=== PATIENT | female | born 1935 | race Two or more races ===

== ENCOUNTER 2017-03-10 21:11 | Inpatient (IN) | payer MEDICARE, OTHER ==
[~2017-03-10] VITALS: Ht 121.9 cm; Wt 39.0 kg
--- NOTE | 2017-03-10 22:00 | NUR ---
GPS/RN NOTE: ADMITTED DIRECTLY FROM [facility], BROUGHT IN BY 2 MALE PARAMEDICS VIA AMBULANCE, CAME TO THE UNIT VIA GURNEY. PATIENT IS ADMITTED ON 5150 FOR GD. PER HOLD PATIENT IS NOT CARING FOR HERSELF, CONFUSED, FORGETFUL, SEEING THINGS THAT ARE NOT THERE. UPON FACE TO FACE PATIENT APPEARS THIN, SAD, DEPRESSED, DISHEVELED, ANXIOUS AND PRE-OCCUPIED, NOT EATING AND LOST 50 LBS IN ABOUT 6 MONTHS, PER HER NIECE, DORIS. SHE HAS BEEN FALLING, FAMILY CAN'T LEAVE HER ALONE AND FEARS FOR HER SAFETY. PLACED PATIENT COMFORTABLY IN BED. RESPIRATION EVEN, BREATHING PATTERN NON-LABORED, NO APPARENT DISTRESS NOTED. PATIENT IS AWAKE, ALERT, ORIENTED TO HER NAME ONLY, CONFUSED, SAD, DEPRESSED, UNKEMPT, DISHEVELED, ANXIOUS, UNABLE TO COMPREHEND, NOT FOLLOWING SIMPLE INSTRUCTIONS. SKIN WARM AND INTACT, NO SWELLING NOTED. BELONGINGS WERE INVENTORIED AND CHECKED FOR CONTRABAND. NO CONTRABAND AND VALUABLES FOUND. PATIENT IS UNDER THE PSYCHIATRIC CARE OF DR. CORDERO AND UNDER THE MEDICAL CARE OF DR. DEVYN ALFORD. MED-RECON DONE. FAMILY WILL BE NOTIFIED OF ADMISSION TO THE UNIT. MRSA SCREEN DONE. BED LOCKED AND PLACED ON LOWEST POSITION FOR SAFETY. WILL CONTINUE TO MONITOR Q 15 MINS. TO MAINTAIN SAFETY. Addendum: 03/11/17 at 0426 by JACOB ISBELL RN GPS/RN NOTE: PATIENT IS UNDER THE PSYCHIATRIC CARE OF DR. RODRIGUEZ. USER ERROR
[2017-03-10] MEDS ORDERED: MAGNESIUM HYDROXIDE 30 ML UDC PO PRN (22:30)
[2017-03-10] MEDS ORDERED: ACETAMINOPHEN 325 MG TABLET PO PRN (22:30)
[2017-03-10] MEDS ORDERED: MAG HYDROX/AL HYDROX/SIMETH 30 ML UDC PO PRN (22:30)
[2017-03-10] MEDS ORDERED: clonazePAM 0.5 MG TABLET PO PRN (23:30)
[2017-03-11] MEDS ORDERED: BENZ1TAB7 PO (00:13)
[2017-03-11] MEDS ORDERED: BENA20TA2 PO (00:13)
[2017-03-11] MEDS ORDERED: [UNRECOGNIZED DRUG - CODE] PO (00:13)
[2017-03-11] MEDS ORDERED: PANT40TA4 PO (00:13)
[2017-03-11] MEDS ORDERED: AMLO5TAB2 PO (00:13)
[2017-03-11] MEDS ORDERED: METF10002 PO (00:13)
[2017-03-11] MEDS ORDERED: RIFA550T PO (00:13)
[2017-03-11] MEDS ORDERED: ARIP10TA15 PO (00:13)
[2017-03-11] MEDS ORDERED: CALC-838 PO (00:13)
[2017-03-11] MEDS ORDERED: ASPI81TA2 PO (00:13)
[2017-03-11] MEDS ORDERED: ATEN25TA PO (00:13)
[2017-03-11] MEDS ORDERED: CICL15CR12 TP (00:13)
[2017-03-11] MEDS ORDERED: IBUP-1955 PO (00:13)
[2017-03-11] MEDS ORDERED: ONDA-25 PO (00:13)
[2017-03-11] MEDS ORDERED: TRAZ-144 PO (00:25)
[2017-03-11] MEDS ORDERED: OLAN5TAB3 PO (00:25)
[2017-03-11] MEDS ORDERED: PARO10TA26 PO (00:25)
[2017-03-11] MEDS ORDERED: LORA1TAB82 PO (00:25)
[2017-03-11 01:32] VITALS: BP 135/83
[2017-03-11] MEDS ORDERED: ONDANSETRON 4 MG TAB.RAPDIS SL PRN (02:30)
[2017-03-11 08:00] VITALS: BP 137/83
[2017-03-11 08:15] LABS: ALANINE AMINOTRANSFERASE 192 U/L (12-78); ALBUMIN 3.4 g/dL (3.4-5.0); ALKALINE PHOSPHATASE 197 U/L (46-116); ASPARTATE AMINOTRANSFERASE 98 U/L (15-37); BILIRUBIN,TOTAL 0.4 mg/dL (0.2-1.0); CALCIUM, SERUM 9.3 mg/dL (8.5-10.1); CARBON DIOXIDE 27 mmol/L (21-32); CHLORIDE 103 mmol/L (98-107); CREATININE 0.9 mg/dL (0.6-1.3); GLUCOSE 200 mg/dL (74-106); POTASSIUM 4.7 mmol/L (3.5-5.1); SODIUM SERUM 139 mmol/L (136-145); TOTAL PROTEIN, SERUM 6.9 g/dL (6.4-8.2); UREA NITROGEN, BLOOD 22 mg/dL (7-18)
[2017-03-11 08:38] LABS: CHOLESTEROL 99 mg/dL (<200); HDL CHOLESTEROL 32 mg/dL (40-60); LDL 52 mg/dL (0-99); TRIGLYCERIDES 71 mg/dL (30-150)
[2017-03-11] MEDS: IBUPROFEN 600 MG TABLET PO SCH ×2 (09:00→12:00)
[2017-03-11] MEDS: BENAZEPRIL HCL 20 MG TABLET PO SCH (09:24)
[2017-03-11] MEDS: METFORMIN 500 MG TABLET PO SCH ×2 (09:24→16:35)
[2017-03-11] MEDS: SULFAMETH/TRIMETH 800/160 MG 1 UDTAB TABLET PO SCH ×2 (09:25→21:04)
[2017-03-11] MEDS: ASPIRIN 81 MG TAB.CHEW PO SCH (09:25)
[2017-03-11] MEDS: ATENOLOL 25 MG TABLET PO SCH (09:25)
[2017-03-11] MEDS: AMLODIPINE BESYLATE 5 MG TABLET PO SCH (09:25)
[2017-03-11] MEDS: RIFAXIMIN 550 MG TABLET PO SCH ×2 (09:28→16:36)
[2017-03-11] MEDS ORDERED: IBUPROFEN 600 MG TABLET PO PRN (14:30)
[2017-03-11 16:00] VITALS: BP 110/60
[2017-03-11] MEDS: BOOST PLUS FOOD-VANILLA 237 ML BOX PO SCH (16:40)
[2017-03-11 20:53] VITALS: BP 99/57
[2017-03-11] MEDS: OLANZAPINE 2.5 MG TABLET PO SCH (21:04)
[2017-03-11] MEDS: PAROXETINE HCL 20 MG TABLET PO SCH (21:08)
[2017-03-12] MEDS: BLOOD SUGAR DIAGNOSTIC 1 EACH STRIP IN SCH ×5 (00:50→22:04)
[2017-03-12] MEDS ORDERED: DEXTROSE 50%-WATER 50 ML DISP.SYRIN IV PRN (01:00)
--- NOTE | 2017-03-12 07:59 | NUR ---
[id number]: BLOOD SUGAR IS 123 MG/DL AND NO INSULIN REQUIRED AT THIS TIME.
[2017-03-12 08:00] VITALS: BP 117/74
[2017-03-12] MEDS: BENAZEPRIL HCL 20 MG TABLET PO SCH (08:46)
[2017-03-12] MEDS: ASPIRIN 81 MG TAB.CHEW PO SCH (08:46)
[2017-03-12] MEDS: METFORMIN 500 MG TABLET PO SCH ×2 (08:46→16:11)
[2017-03-12] MEDS: AMLODIPINE BESYLATE 5 MG TABLET PO SCH (08:46)
[2017-03-12] MEDS: SULFAMETH/TRIMETH 800/160 MG 1 UDTAB TABLET PO SCH ×2 (08:46→20:05)
[2017-03-12] MEDS: ATENOLOL 25 MG TABLET PO SCH (08:49)
[2017-03-12] MEDS: RIFAXIMIN 550 MG TABLET PO SCH ×2 (08:51→16:11)
[2017-03-12] MEDS: BOOST PLUS FOOD-VANILLA 237 ML BOX PO SCH ×3 (08:56→16:16)
--- NOTE | 2017-03-12 12:00 | NUR ---
[id number]: BLOOD SUGAR IS 101 MG/DL AND NO INSULIN REQUIRED AT THIS TIME.
--- NOTE | 2017-03-12 15:36 | NUR ---
Initial Discharge Note: Patient resides at home with her sister [address] [place] [address] ([phone]). well service floor worker spoke to both patient's sister Kim Sanderson ([phone]) and patient's niece Marilee Julio ([phone]) who both confirmed that patient lives at home with her sister Kim Sanderson. well service floor worker will help form a safe and proper discharge.
[2017-03-12 16:00] VITALS: BP 100/67
--- NOTE | 2017-03-12 17:00 | NUR ---
[id number]: BLOOD SUGAR IS 127 MG/DL AND NO INSULIN REQUIRED AT THIS TIME.
[2017-03-12] MEDS: OLANZAPINE 2.5 MG TABLET PO SCH (20:05)
[2017-03-12 20:13] VITALS: BP 104/57
[2017-03-12] MEDS: PAROXETINE HCL 20 MG TABLET PO SCH (21:19)
[2017-03-12] MEDS: INSULIN REGULAR, HUMAN 100 UNIT/ML 3 ML VIAL SQ PRN (22:08)
[2017-03-13] MEDS: BLOOD SUGAR DIAGNOSTIC 1 EACH STRIP IN SCH ×4 (07:47→23:06)
[2017-03-13 08:17] VITALS: BP 119/70
[2017-03-13] MEDS: METFORMIN 500 MG TABLET PO SCH ×2 (08:35→16:45)
[2017-03-13] MEDS: ASPIRIN 81 MG TAB.CHEW PO SCH (08:35)
[2017-03-13] MEDS: SULFAMETH/TRIMETH 800/160 MG 1 UDTAB TABLET PO SCH ×2 (08:35→20:56)
[2017-03-13] MEDS: AMLODIPINE BESYLATE 5 MG TABLET PO SCH (08:35)
[2017-03-13] MEDS: ATENOLOL 25 MG TABLET PO SCH (08:35)
[2017-03-13] MEDS: BENAZEPRIL HCL 20 MG TABLET PO SCH (08:35)
[2017-03-13] MEDS: RIFAXIMIN 550 MG TABLET PO SCH ×2 (08:37→16:46)
[2017-03-13] MEDS: BOOST PLUS FOOD-VANILLA 237 ML BOX PO SCH ×3 (08:49→16:45)
--- NOTE | 2017-03-13 12:35 | NUR ---
GPS RN NOTE; DR CHIANG NOTIFIED PT COMPLAINING THAT SHE CANT MOVE HER RIGHT HAND THAT HAPPENED IN THE MORNING NO NEW ORDERS AT THIS TIME MD WILL LOOK AT IT LATER WILL CONTINUE MONITORING FOR SAFETY AND BEHAVIOR Q 15 MIN
[2017-03-13 16:12] VITALS: BP 96/61
--- NOTE | 2017-03-13 20:30 | NUR ---
GPS RN NOTE: REASSESSED THE RIGHT HAND AND THERE IS A NOTICEABLE WEAKNESS AND DROPPING OF THE RIGHT HAND. PATIENT DENIES ANY PAIN AND DISCOMFORT AND PATIENT CAN STILL ABLE TO SQUEEZE HAND. NOTIFIED DR. BORREGO WITH ORDER OF NEURO CONSULT AND RE EVALUATE IN THE MORNING
[2017-03-13 20:36] VITALS: BP 110/54
[2017-03-13] MEDS: OLANZAPINE 2.5 MG TABLET PO SCH (20:56)
[2017-03-13] MEDS: PAROXETINE HCL 20 MG TABLET PO SCH (21:08)
--- NOTE | 2017-03-14 06:58 | NUR ---
CALLED DR ELIZABETH SAVAGE AT PHONE # [phone] FOR NEURO CONSULT ,OFFICE HOUR IS FROM 9AM TO 4 PM.WILL ENDORSE TO AM SHIFT RN TO FOLLOW UP.
[2017-03-14 08:00] VITALS: BP 152/76
[2017-03-14] MEDS: BLOOD SUGAR DIAGNOSTIC 1 EACH STRIP IN SCH ×4 (08:05→21:36)
[2017-03-14] MEDS: RIFAXIMIN 550 MG TABLET PO SCH ×2 (09:00→17:00)
[2017-03-14] MEDS: AMLODIPINE BESYLATE 5 MG TABLET PO SCH (09:00)
[2017-03-14] MEDS: BENAZEPRIL HCL 20 MG TABLET PO SCH (09:00)
[2017-03-14] MEDS: SULFAMETH/TRIMETH 800/160 MG 1 UDTAB TABLET PO SCH ×2 (09:00→20:04)
[2017-03-14] MEDS: ASPIRIN 81 MG TAB.CHEW PO SCH (09:00)
[2017-03-14] MEDS: BOOST PLUS FOOD-VANILLA 237 ML BOX PO SCH ×3 (09:00→17:34)
[2017-03-14] MEDS: METFORMIN 500 MG TABLET PO SCH ×2 (09:00→17:00)
[2017-03-14] MEDS: ATENOLOL 25 MG TABLET PO SCH (09:00)
[2017-03-14 12:00] VITALS: BP 114/60
--- NOTE | 2017-03-14 12:27 | NUR ---
GPS RN: PATIENT IS ASLEEP AT THIS TIME. MORNING MEDICATIONS NOT ADMINISTERED DUE TO PATIENT BEING ASLEEP. NO S/S OF ACUTE DISTRESS, RESPIRATION EVEN AND UNLABORED, SKIN WARM TO TOUCH, AROUSED BY STIMULI. VS STABLE: 114/60 HR 74, RR 18, T 97.4; O2 SAT 95% ROOM AIR. DR. JOHNSON AND DR. CHIANG SEEN THE PATIENT IN THE MORNING. WILL CONTINUE TO MONITOR THE PATIENT.
--- NOTE | 2017-03-14 15:30 | NUR ---
GPS RN: PATIENT APPEARS TO BE SEDATED, AROUSED BY STIMULR, VSS, NO S/S OF ACUTE DISTRESS, SKIN WARM, RESPIRATION EVEN AND UNLABORED. DR. RODRIGUEZ IN THE UNIT, MADE AWARE. CONTINUE TO MONITOR THE PATIENT.
[2017-03-14 16:00] VITALS: BP 152/89
--- NOTE | 2017-03-14 18:08 | NUR ---
GPS RN: UNABLE TO ADMINISTER 1700 MEDS DUE TO PATIENT BEING SEDATED. PT ONLY TOOK HER BOOST.VSS, NO SS OF ACUTE DISTRESS, SKIN IS WARM TO TOUCH, RESPIRATION EVEN AND UNLABORED. FAMILY AT BEDSIDE. CONTINUE TO MONITOR THE PATIENT.
--- NOTE | 2017-03-14 19:57 | NUR ---
GPS/RN NOTE: PATIENT'S FAMILY AT THE BEDSIDE. JOSE GEORGE REQUESTED NOT TO GIVE ZYPREXA TONIGHT. SHE IS THINKING THAT THE MEDICATION MADE HER SLEEPY.
[2017-03-14 20:00] VITALS: BP 129/78
[2017-03-14] MEDS: OLANZAPINE 2.5 MG TABLET PO SCH (20:00)
--- NOTE | 2017-03-14 20:00 | NUR ---
GPS/RN NOTE: JOSE GEORGE REQUESTED THE NIGHT MEDICATION AT THIS TIME TO SEE IF PATIENT WILL TAKE HER BACTRIM AND PAXIL.
[2017-03-14] MEDS: PAROXETINE HCL 20 MG TABLET PO SCH (20:04)
--- NOTE | 2017-03-14 21:38 | NUR ---
GPS/RN NOTE: ACCUCHECK 240 MG/DL.
--- NOTE | 2017-03-14 21:41 | NUR ---
GPS/RN NOTE: ACCUCHECK 240 MG/DL, NO INSULIN GIVEN, PATIENT REFUSED TO EAT AND DRINK ANYTHING. ATTEMPTED 3X, PATIENT STILL REFUSED.
[2017-03-15 08:00] VITALS: BP 133/99
[2017-03-15] MEDS: BLOOD SUGAR DIAGNOSTIC 1 EACH STRIP IN SCH ×4 (08:17→21:47)
[2017-03-15] MEDS: INSULIN REGULAR, HUMAN 100 UNIT/ML 3 ML VIAL SQ PRN ×3 (08:44→21:50)
[2017-03-15] MEDS: ASPIRIN 81 MG TAB.CHEW PO SCH (08:45)
[2017-03-15] MEDS: BENAZEPRIL HCL 20 MG TABLET PO SCH (08:45)
[2017-03-15] MEDS: METFORMIN 500 MG TABLET PO SCH ×2 (08:45→16:38)
[2017-03-15] MEDS: AMLODIPINE BESYLATE 5 MG TABLET PO SCH (08:45)
[2017-03-15] MEDS: SULFAMETH/TRIMETH 800/160 MG 1 UDTAB TABLET PO SCH ×2 (08:45→21:47)
[2017-03-15] MEDS: RIFAXIMIN 550 MG TABLET PO SCH ×2 (08:47→16:56)
[2017-03-15] MEDS: ATENOLOL 25 MG TABLET PO SCH (08:48)
[2017-03-15] MEDS: BOOST PLUS FOOD-VANILLA 237 ML BOX PO SCH ×3 (09:09→16:38)
--- NOTE | 2017-03-15 11:08 | NUR ---
RN-CO: DR RODRIGUEZ DISCONTINUED HOLD AND ORDERED TO ASK PT TO SIGN VOLUNTARY ADMISSION. ASKED PT TO SIGN VOLUNTARY FORM WITH THE HELP OF BENGALI STAFF, SHE VERBALLY AGREED TO SIGN AFTER RN EXPLAINED.
--- NOTE | 2017-03-15 11:10 | NUR ---
RN-CO: SHE SIGNED THE VOLUNTARY FORM.
--- NOTE | 2017-03-15 15:00 | NUR ---
GPS/RN RIGHT WRIST BRACE APPLIED PER DR JOHNSON ORDER
--- NOTE | 2017-03-15 15:25 | NUR ---
composite layup worker spoke to patient's niece Marilee Julio ([phone]) to inform her that patient will not be discharged today as she is not medically cleared. Marilee was agreeable and appreciative of the information provided by the social worker palliative care.
[2017-03-15 16:00] VITALS: BP 145/59
[2017-03-15 20:00] VITALS: BP 112/70
[2017-03-15] MEDS: PAROXETINE HCL 20 MG TABLET PO SCH (21:47)
[2017-03-15] MEDS: TEMAZEPAM 7.5 MG CAPSULE PO PRN (21:47)
[2017-03-16] MEDS: BLOOD SUGAR DIAGNOSTIC 1 EACH STRIP IN SCH ×4 (07:34→22:47)
[2017-03-16] MEDS: INSULIN REGULAR, HUMAN 100 UNIT/ML 3 ML VIAL SQ PRN ×2 (07:45→17:35)
[2017-03-16 08:00] VITALS: BP 127/80
[2017-03-16] MEDS: METFORMIN 500 MG TABLET PO SCH ×2 (08:57→18:10)
[2017-03-16] MEDS: AMLODIPINE BESYLATE 5 MG TABLET PO SCH (08:57)
[2017-03-16] MEDS: ASPIRIN 81 MG TAB.CHEW PO SCH (08:57)
[2017-03-16] MEDS: BOOST PLUS FOOD-VANILLA 237 ML BOX PO SCH ×3 (08:58→18:27)
[2017-03-16] MEDS: BENAZEPRIL HCL 20 MG TABLET PO SCH (08:58)
[2017-03-16] MEDS: SULFAMETH/TRIMETH 800/160 MG 1 UDTAB TABLET PO SCH ×2 (08:58→21:35)
[2017-03-16] MEDS: ATENOLOL 25 MG TABLET PO SCH (08:58)
[2017-03-16] MEDS: RIFAXIMIN 550 MG TABLET PO SCH ×2 (09:01→18:22)
[2017-03-16 16:00] VITALS: BP 100/61
[2017-03-16 20:00] VITALS: BP 102/61
[2017-03-16] MEDS: TEMAZEPAM 7.5 MG CAPSULE PO PRN (21:35)
[2017-03-16] MEDS: PAROXETINE HCL 20 MG TABLET PO SCH (21:35)
[2017-03-17 08:00] VITALS: BP 123/76
[2017-03-17] MEDS: BLOOD SUGAR DIAGNOSTIC 1 EACH STRIP IN SCH ×4 (08:02→21:53)
[2017-03-17] MEDS: BENAZEPRIL HCL 20 MG TABLET PO SCH (09:10)
[2017-03-17] MEDS: ASPIRIN 81 MG TAB.CHEW PO SCH (09:10)
[2017-03-17] MEDS: ATENOLOL 25 MG TABLET PO SCH (09:10)
[2017-03-17] MEDS: METFORMIN 500 MG TABLET PO SCH ×2 (09:10→16:48)
[2017-03-17] MEDS: AMLODIPINE BESYLATE 5 MG TABLET PO SCH (09:11)
[2017-03-17] MEDS: SULFAMETH/TRIMETH 800/160 MG 1 UDTAB TABLET PO SCH ×2 (09:11→21:52)
[2017-03-17] MEDS: RIFAXIMIN 550 MG TABLET PO SCH ×2 (09:11→16:48)
[2017-03-17] MEDS: BOOST PLUS FOOD-VANILLA 237 ML BOX PO SCH ×3 (09:13→16:49)
[2017-03-17] MEDS: INSULIN REGULAR, HUMAN 100 UNIT/ML 3 ML VIAL SQ PRN (12:56)
[2017-03-17 16:09] VITALS: BP 118/80
[2017-03-17 20:02] VITALS: BP 95/57
[2017-03-17] MEDS: PAROXETINE HCL 20 MG TABLET PO SCH (21:52)
--- NOTE | 2017-03-18 00:36 | NUR ---
Pt has been a bit anxious but compliant with care & redirectable. She is depressed & anhedonic.She is a fall risk.
--- NOTE | 2017-03-18 00:36 | NUR ---
Her blood sugar level last night was 166 mg/dl & she did not want Insulin.
[2017-03-18] MEDS: BLOOD SUGAR DIAGNOSTIC 1 EACH STRIP IN SCH ×2 (07:45→12:22)
[2017-03-18 08:00] VITALS: BP 150/76
[2017-03-18] MEDS: INSULIN REGULAR, HUMAN 100 UNIT/ML 3 ML VIAL SQ PRN (08:12)
[2017-03-18 08:31] VITALS: BP 150/76
[2017-03-18] MEDS: RIFAXIMIN 550 MG TABLET PO SCH (08:52)
[2017-03-18] MEDS: BENAZEPRIL HCL 20 MG TABLET PO SCH (08:54)
[2017-03-18] MEDS: SULFAMETH/TRIMETH 800/160 MG 1 UDTAB TABLET PO SCH (08:54)
[2017-03-18] MEDS: ASPIRIN 81 MG TAB.CHEW PO SCH (08:54)
[2017-03-18] MEDS: ATENOLOL 25 MG TABLET PO SCH (08:54)
[2017-03-18 08:55] VITALS: BP 150/76
[2017-03-18] MEDS: AMLODIPINE BESYLATE 5 MG TABLET PO SCH (08:55)
[2017-03-18] MEDS: METFORMIN 500 MG TABLET PO SCH (08:55)
[2017-03-18] MEDS: BOOST PLUS FOOD-VANILLA 237 ML BOX PO SCH ×2 (08:56→13:14)
--- NOTE | 2017-03-18 15:42 | NUR ---
DISCHARGE NOTES PATIENT D/C AT THIS TIME GOING HOME WITH HOME HEALTH. PATIENT WILL FOLLOW [facility] SMITH PHONE # [phone], AND [facility] PHONE # [phone]. PATIENT A/O X2/3, MED COMPLIANT, V/S STABLE, MEDICALLY STABLE. PATIENT DENIED SI/HI/AVH AT THIS TIME. MED RECONCILIATION, AND DISCHARGE ORDER REVIEWED AND EXPLAINED TO PATIENT AND NIECE. NIECE VERBALIZED UNDERSTANDING. BELONGING RETURNED BACK TO THE PATIENT. PATIENT SIGN PAPERWORK. PATIENT STRIP CUTTER BY NIECE NAME DORIS JOYCE [phone]. ESCORTED PATIENT TO THE LOBBY FOR SAFETY.
--- NOTE | 2017-03-18 16:08 | NUR ---
Discharge Note; Patient was discharged home with her sister [address] [place] [address] ([phone]). Patient's sister Kim Sanderson ([phone]) and patient's niece Marilee Julio ([phone]) were notified and picked her up via private vehicle. Patient's sister and niece were agreeable with the discharge plan. Patient's mood and affect was calm and appropriate upon discharge. Patient denied suicidal and homicidal ideations. Patient was [facility] to [facility] [place] [address] [place] [address] ([phone]). Patient's niece agreed to have patient follow-up with a psychiatrist within 30 days. generator worker faxed home health order to [facility]. (phone: [phone]/fax: [phone]). Facilitated info to IDT team who are in agreement with discharge arrangement. The multidisciplinary exitcare form was done, printed, signed, and given to the patient.
== END 2017-03-18 16:20 | disposition home or self-care (01) | DRG 885 ==
LOC: GPS 21:58
PROVIDERS: ADMIT Psychiatry & Neurology Psychiatry; ATTEND Nurse Practitioner Acute Care
DX: F32.3 Major depressive disorder, single episode, severe with psychotic features (principal); F03.90 Unspecified dementia, unspecified severity, without behavioral disturbance, psychotic disturbance, mood disturbance, and anxiety; G62.9 Polyneuropathy, unspecified; E11.9 Type 2 diabetes mellitus without complications; M48.02 Spinal stenosis, cervical region; K74.60 Unspecified cirrhosis of liver; N39.0 Urinary tract infection, site not specified; F32.9 Major depressive disorder, single episode, unspecified; F41.9 Anxiety disorder, unspecified; I10 Essential (primary) hypertension; M19.90 Unspecified osteoarthritis, unspecified site; Z73.6 Limitation of activities due to disability; F29 Unspecified psychosis not due to a substance or known physiological condition; E86.0 Dehydration; M54.12 Radiculopathy, cervical region; E78.5 Hyperlipidemia, unspecified
CPT/HCPCS: 36415; 70450-TC; 72125-TC; 80053-TC; 80061-TC; 82962-TC; 87081-TC; J1815; Z7610